=== PATIENT | female | born 1940 | race Caucasian/White ===

== ENCOUNTER 2017-05-24 00:46 | Inpatient (IN) | payer MEDICARE ==
[2017-05-24] VITALS (19 sets, daily range): BP systolic 88–116; BP diastolic 31–67
[~2017-05-24] VITALS: Ht 154.9 cm; Wt 52.4 kg
[2017-05-24] MEDS ORDERED: IPRATRPIUM/ALBUTEROL 0.5/2.5MG 3 ML NEBU. ONE ×2 (01:02→06:15)
[2017-05-24] MEDS ORDERED: IPRATRPIUM/ALBUTEROL 0.5/2.5MG 3 ML NEBU. NEB ONE (01:15)
--- NOTE | 2017-05-24 01:22 | PHYS DOC ---
Past History Past Medical History: A-Fib, Arthritis, COPD, GERD, Hypertension, Hypothyroid Smoking: Quit Greater Than 1 Year Alcohol Use: None Drug Use: None Adult General Chief Complaint Chief Complaint: CHEST PAIN HPI HPI Patient is a 76 year old female who presents with complaint of chest pain. Patient states her symptoms started approximately 1 hour prior to arrival. Patient states that the symptoms started while at rest. Patient states that she is having tightness and pressure throughout her chest. Patient denies nausea but does complain of associated shortness of breath. Patient denies any cough or fever. Patient has history of atrial fibrillation, hypertension, and COPD. Patient was given full strength aspirin by EMS prior to arrival. Patient rates her pain currently as 9 out of 10. The patient is currently under the care of Dr. Guerrero at her skilled nursing. Patient denies any history of myocardial infarction. Review of Systems Review of Systems Constitutional: Denies fever or chills [] Eyes: Denies change in visual acuity, redness, or eye pain [] HENT: Denies nasal congestion or sore throat [] Respiratory: Shortness of breath, denies cough [] Cardiovascular: Chest pain, denies edema [] GI: Denies abdominal pain, nausea, vomiting, bloody stools or diarrhea [] : Denies dysuria or hematuria [] Musculoskeletal: Denies back pain or joint pain [] Integument: Denies rash or skin lesions [] Neurologic: Denies headache, focal weakness or sensory changes [] Current Medications Current Medications Current Medications Medications (Trade) Dose Ordered Sig/Zoila Start Time Stop Time Status Last Admin Dose Admin Albuterol/ Ipratropium (Duoneb) 3 ml 1X ONCE 05/24/17 01:15 05/24/17 01:16 UNV 05/24/17 01:09 3 ML Physical Exam Physical Exam Constitutional: Alert, afebrile, appears in chronically poor health. [] HENT: Normocephalic, atraumatic, bilateral external ears normal, oropharynx moist, no oral exudates, nose normal. [] Eyes: PERRLA, EOMI, conjunctiva normal, no discharge. [] Neck: Normal range of motion, no tenderness, supple, no stridor. [] Cardiovascular: Irregular rhythm, tachycardia, no murmur [] Lungs & Thorax: Mild restriction of air movement bilaterally, no wheezes, no rales [] Abdomen: Bowel sounds normal, soft, no tenderness, no masses, no pulsatile masses. [] Skin: Warm, dry, no erythema, no rash. [] Back: No tenderness, no CVA tenderness. [] Extremities: No tenderness, no cyanosis, no clubbing, ROM intact, no edema. [] Neurologic: Alert and oriented X 3, normal motor function, normal sensory function, no focal deficits noted. [] Current Patient Data Vital Signs Vital Signs Date Time Temp Pulse Resp B/P (MAP) Pulse Ox O2 Delivery O2 Flow Rate FiO2 05/24/17 01:18 99 Nasal Cannula 2.0 Lab Results Laboratory Tests Test 05/24/17 01:30 White Blood Count 15.3 x10^3/uL Red Blood Count 3.85 x10^6/uL Hemoglobin 12.2 g/dL Hematocrit 37.4 % Mean Corpuscular Volume 97 fL Mean Corpuscular Hemoglobin 32 pg Mean Corpuscular Hemoglobin Concent 33 g/dL Red Cell Distribution Width 15.8 % Platelet Count 341 x10^3/uL Neutrophils (%) (Auto) 66 % Lymphocytes (%) (Auto) 17 % Monocytes (%) (Auto) 15 % Eosinophils (%) (Auto) 1 % Basophils (%) (Auto) 1 % Neutrophils # (Auto) 10.1 x10^3uL Lymphocytes # (Auto) 2.7 x10^3/uL Monocytes # (Auto) 2.2 x10^3/uL Eosinophils # (Auto) 0.2 x10^3/uL Basophils # (Auto) 0.1 x10^3/uL Segmented Neutrophils % 64 % Band Neutrophils % 1 % Lymphocytes % 20 % Monocytes % 12 % Eosinophils % 3 % Smudge Cells Present Toxic Granulation Slight Platelet Estimate Adequate Sodium Level 139 mmol/L Potassium Level 3.3 mmol/L Chloride Level 104 mmol/L Carbon Dioxide Level 25 mmol/L Anion Gap 10 Blood Urea Nitrogen 13 mg/dL Creatinine 1.1 mg/dL Estimated GFR (Cockcroft-Gault) 48.2 BUN/Creatinine Ratio 12 Glucose Level 100 mg/dL Calcium Level 9.2 mg/dL Magnesium Level 1.7 mg/dL Total Bilirubin 0.9 mg/dL Aspartate Amino Transf (AST/SGOT) 16 U/L Alanine Aminotransferase (ALT/SGPT) 9 U/L Alkaline Phosphatase 100 U/L Creatine Kinase 19 U/L Creatine Kinase MB (Mass) < 0.5 ng/mL Creatine Kinase MB Relative Index 2.6 % Troponin I Quantitative 0.054 ng/mL FE-Zot-R-Type Natriuretic Peptide 3051 pg/mL Total Protein 7.5 g/dL Albumin 2.9 g/dL Albumin/Globulin Ratio 0.6 Current Medications Medications (Trade) Dose Ordered Sig/Zoila Route PRN Reason Start Time Stop Time Status Last Admin Dose Admin Albuterol/ Ipratropium (Duoneb) 3 ml STK-MED ONCE .ROUTE 05/24/17 01:02 05/24/17 01:03 DC Albuterol/ Ipratropium (Duoneb) 3 ml 1X ONCE NEB 05/24/17 01:15 05/24/17 01:32 DC 05/24/17 01:09 Fentanyl Citrate (Fentanyl 2ml Vial) 50 mcg PRN Q15MIN PRN IV PAIN GREATER THAN 305/24/17 01:30 05/25/17 01:29 Ondansetron HCl (Zofran) 4 mg 1X ONCE IV 05/24/17 01:30 05/24/17 01:32 DC 05/24/17 01:45 Multi-Ingredient Mouthwash/Gargle (Gi Cocktail) 20 ml 1X ONCE PO 05/24/17 01:30 05/24/17 01:32 DC 05/24/17 01:45 EKG EKG Interpreted by me: Heart rate 99, atrial fibrillation, normal axis, no acute ST/ T-wave abnormalities present [] Radiology/Procedures Radiology/Procedures One view AP chest x-ray interpreted by me: No infiltrates, no effusions, normal cardiac silhouette [] Course & Med Decision Making Course & Med Decision Making Pertinent Labs and Imaging studies reviewed. (See chart for details) The patient was given DuoNeb breathing treatment with mild improvement tightness. Patient was also treated with GI cocktail and fentanyl. The patient states her symptoms have improved but are still present. Patient's initial lab work shows an elevated BNP level but no elevation in troponin levels. Due to patient's age and risk factors for coronary artery disease, the patient will need admission to the hospital to rule out possible myocardial infarction. Patient also is showing evidence of possible congestive heart failure which was not noted on her history. The patient will need further workup and patient will be started on one-time dose of 40 mg of IV Lasix. I spoke with Dr. Khan who accepted care patient in hospital. [] Dragon Disclaimer Dragon Disclaimer This chart was dictated in whole or in part using Voice Recognition software in a busy, high-work load, and often noisy Emergency Department environment. It may contain unintended and wholly unrecognized errors or omissions. Departure Departure: Impression: Primary Impression: Chest pain Additional Impressions: Congestive heart failure (CHF) Afib COPD (chronic obstructive pulmonary disease) Disposition: ADMITTED INPATIENT Admitting Physician: Sarai Khan Condition: STABLE Referrals: SHAYY GUERRERO MD (PCP) Problem Qualifiers Primary Impression: Chest pain Chest pain type: unspecified Qualified Codes: R07.9 - Chest pain, unspecified Additional Impressions: Congestive heart failure (CHF) Congestive heart failure type: unspecified congestive heart failure type Congestive heart failure chronicity: acute Qualified Codes: I50.9 - Heart failure, unspecified Afib Atrial fibrillation type: unspecified Qualified Codes: I48.91 - Unspecified atrial fibrillation COPD (chronic obstructive pulmonary disease) COPD type: unspecified COPD Qualified Codes: J44.9 - Chronic obstructive pulmonary disease, unspecified CARMEN DURAN MD May 24, 2017 01:22
[2017-05-24] MEDS ORDERED: LIDO:MAALOX 1:1 20 ML SINGLE DOSE PO ONE (01:30)
[2017-05-24] MEDS ORDERED: fentaNYL PF 100 MCG/2 ML VIAL IV PRN ×2 (01:30→02:45)
[2017-05-24] MEDS ORDERED: ONDANSETRON PF 4 MG/2 ML VIAL. IV ONE (01:30)
[2017-05-24 01:59] LABS: HEMATOCRIT 37.4 % (36.0-47.0); HEMOGLOBIN 12.2 g/dL (12.0-15.5); MEAN CORPUSCULAR HEMOGLOBIN 32 pg (25-35); MEAN CORPUSCULAR HGB CONC 33 g/dL (31-37); MEAN CORPUSCULAR VOLUME 97 fL (79-100); RED BLOOD COUNT 3.85 x10^6/uL (3.50-5.40); RED CELL DISTRIBUTION WIDTH 15.8 % (11.5-14.5); WHITE BLOOD COUNT 15.3 x10^3/uL (4.0-11.0)
[2017-05-24 02:00] LABS: BASO # 0.1 x10^3/uL (0.0-0.2); BASO % 1 % (0-3); EOS # 0.2 x10^3/uL (0.0-0.7); EOS % 1 % (0-3); LYMPH # 2.7 x10^3/uL (1.0-4.8); LYMPH % 17 % (24-48); MONO # 2.2 x10^3/uL (0.0-1.1); MONO % 15 % (0-9); NEUT # 10.1 x10^3uL (1.8-7.7); NEUT % 66 % (31-73); PLATELET COUNT 341 x10^3/uL (140-400)
[2017-05-24 02:17] LABS: % BANDS 1 % (0-9); % EOS 3 % (0-5); % LYMPHS 20 % (24-48); % MONOS 12 % (0-10); % SEGS 64 % (35-66)
[2017-05-24 02:18] LABS: PLT ESTIMATE ADEQUATE (ADEQUATE); SMUDGE CELLS PRESENT; TOXIC GRANULATION SLIGHT
[2017-05-24 02:21] LABS: ALBUMIN 2.9 g/dL (3.4-5.0); ALBUMIN/GLOBULIN RATIO 0.6 (1.0-1.7); ALK PHOS 100 U/L (46-116); ALT (SGPT) 9 U/L (14-59); ANION GAP 10 (6-14); AST (SGOT) 16 U/L (15-37); BLOOD UREA NITROGEN 13 mg/dL (7-20); BUN/CREATININE RATIO 12 (6-20); CALCIUM 9.2 mg/dL (8.5-10.1); CARBON DIOXIDE 25 mmol/L (21-32); CHLORIDE 104 mmol/L (98-107); CREATINE KINASE 19 U/L (26-192); CREATININE 1.1 mg/dL (0.6-1.0); GFR 48.2; GLUCOSE 100 mg/dL (70-99); MAGNESIUM 1.7 mg/dL (1.8-2.4); POTASSIUM 3.3 mmol/L (3.5-5.1); SODIUM 139 mmol/L (136-145); TOTAL BILIRUBIN 0.9 mg/dL (0.2-1.0); TOTAL PROTEIN 7.5 g/dL (6.4-8.2)
[2017-05-24] MEDS ORDERED: ONDANSETRON PF 4 MG/2 ML VIAL. IV PRN (02:45)
[2017-05-24] MEDS ORDERED: ACETAMINOPHEN 325 MG TABLET PO PRN (02:45)
[2017-05-24] MEDS ORDERED: FUROSEMIDE 40 MG/4 ML VIAL IVP ONE (03:00)
[2017-05-24] MEDS ORDERED: MORPHINE SULFATE 2 MG/ML DISP.SYRIN. IV PRN (04:15)
[2017-05-24] MEDS ORDERED: NITROGLYCERIN SUBLINGUAL 0.4 MG BOTTLE OF 25. SL PRN (04:15)
[2017-05-24] MEDS ORDERED: PANT20TA58 PO (05:14)
[2017-05-24] MEDS ORDERED: MAGNESIUM SULFATE 2GM 50 ML IV ONE (05:30)
[2017-05-24] MEDS ORDERED: POTASSIUM CHLORIDE 20 MEQ/15 ML ORAL LIQUID. PO ONE (05:45)
[2017-05-24] MEDS ORDERED: HYDR-971 PO (05:47)
[2017-05-24] MEDS ORDERED: MULT1TAB52 PO (05:47)
[2017-05-24] MEDS ORDERED: DIGO250T92 PO (05:54)
[2017-05-24] MEDS ORDERED: ONDA4TAB10 PO (05:54)
[2017-05-24] MEDS ORDERED: MIRT15TA PO (05:54)
[2017-05-24] MEDS ORDERED: MIDO5TAB PO (05:54)
[2017-05-24] MEDS ORDERED: MAG355OR12 TOP (05:54)
[2017-05-24] MEDS ORDERED: DIPH25CA58 PO (05:54)
[2017-05-24] MEDS ORDERED: LEVO175T5 PO (05:54)
[2017-05-24] MEDS ORDERED: CHOL10003 PO (05:54)
[2017-05-24] MEDS ORDERED: CYAN10005 PO (05:54)
[2017-05-24] MEDS: IPRATRPIUM/ALBUTEROL 0.5/2.5MG 3 ML NEBU. NEB SCH ×4 (06:21→20:35)
[2017-05-24] MEDS: IV NORMAL SALINE 1,000ML 1,000 ML IV SCH ×5 (06:45→22:01)
--- NOTE | 2017-05-24 06:47 | EKG ---
[address] [address] Test Date: 2017-05-24 Test Time: 00:56:09 Pat Name: NATANAEL MCKEON Department: Room: Gender: F Hris Analyst: Brice : 1940 Requested By: CARMEN DURAN Order Number: [id number] Reading MD: Measurements Intervals [place] Rate: 99 P: MA: QRS: 66 QRSD: 72 T: 0 QT: 396 QTc: 514 Interpretive Statements ATRIAL FIBRILLATION VENTRICULAR PREMATURE COMPLEX(ES) QRS(T) CONTOUR ABNORMALITY CONSISTENT WITH ANTEROSEPTAL INFARCT PROBABLY OLD T ABNORMALITY IN INFERIOR LEADS RI6.01 Unconfirmed report No previous ECG available for comparison
[2017-05-24 08:21] LABS: BILIRUBIN,URINE NEG (NEG); CLARITY,URINE CLOUDY; COLOR,URINE STRAW; GLUCOSE,URINE NEG (NEG); NITRITE,URINE NEG (NEG); UROBILINOGEN,URINE 0.2 mg/dL (0.2 mg/dL)
[2017-05-24 08:22] LABS: BACTERIA,URINE MANY /HPF (0-FEW); HYALINE CASTS, URINE OCC /HPF; SQUAMOUS EPITHELIAL CELL,UR FEW /LPF; WBC,URINE TNTC /HPF (0-4)
--- NOTE | 2017-05-24 08:50 | RAD ---
AP portable chest radiograph 05/24/2017 Clinical History: Chest pain and shortness of breath. An AP portable erect digital radiograph of the chest was obtained. No previous imaging studies are available for comparison. The cardiac silhouette is borderline enlarged. Atherosclerotic calcification of the thoracic aorta is seen. The thoracic aorta is minimally tortuous. No acute pulmonary infiltrate is seen. No pleural effusion or pneumothorax is noted. Degenerative changes are seen involving the thoracic spine and both shoulders. Impression: No acute abnormality is seen.
[2017-05-24] MEDS ORDERED: ENOXAPARIN 40 MG/0.4 ML DISP.SYRIN. SQ SCH (09:00)
--- NOTE | 2017-05-24 10:45 | PDOC2 ---
CONSULT Date of Admission DATE: 05/24/17 TIME: 10:42 Reason for Consult: chest pain Problem List Problems Medical Problems: (1) Afib Status: Acute (2) Chest pain Status: Acute (3) Congestive heart failure (CHF) Status: Acute (4) COPD (chronic obstructive pulmonary disease) Status: Acute History of Present Illness Ms Parsons is a 76 year old female currently residing in a [facility] rehab setting. She presented with complaints of chest pressure and shortness of breath that started at rest. She reports pain has continued but was improved minimally with breathing tx and is worsened with deep inspiration. She denies any prior cardiac history bur was found to be in atrial fibrillation and [facility] records indicate history of this. She denies any congestive symptoms, palpitations, lightheadedness, edema or syncope. She ambulates with a walker but reports increased dyspnea with exertion over the last 6 months, sometimes improved with breathing tx. She is a fairly poor historian and family reports that she can be very forgetful. History is reviewed from the chart. Past Medical History Paroxysmal atrial fibrillation, COPD Records indicate hypertension though she denies this. orthostatic hypotension Hypothyroidism Falls GERD osteoarthritis depression ileostomy urinary tract infections dementia Past Surgical History ileostomy, hernia repair operation Family History non contributory due to age Social History prior smoker, no illicit drugs, she denies ETOH though chart indicates history of alcoholism Current Medications Current Medications Albuterol/ Ipratropium (Duoneb) 3 ml STK-MED ONCE .ROUTE ; Start 05/24/17 at 01: 02; Stop 05/24/17 at 01:03; Status DC Albuterol/ Ipratropium (Duoneb) 3 ml 1X ONCE NEB Last administered on 01:09; Start 05/24/17 at 01:15; Stop 05/24/17 at 01:32; Status DC Fentanyl Citrate (Fentanyl 2ml Vial) 50 mcg PRN Q15MIN PRN IV PAIN GREATER THAN 3/10 Last administered on 05/24/17 03:32; Start 05/24/17 at 01:30; Stop at 08:50; Status DC Ondansetron HCl (Zofran) 4 mg 1X ONCE IV Last administered on 05/24/17 01:45 ; Start 05/24/17 at 01:30; Stop 05/24/17 at 01:32; Status DC Multi-Ingredient Mouthwash/Gargle (Gi Cocktail) 20 ml 1X ONCE PO Last administered on 05/24/17 01:45; Start 05/24/17 at 01:30; Stop 05/24/17 at 01:32 ; Status DC Ondansetron HCl (Zofran) 4 mg PRN Q4HRS PRN IV NAUSEA/VOMITING; Start 05/24/17 at 02:45; Stop 05/25/17 at 02:44 Fentanyl Citrate (Fentanyl 2ml Vial) 50 mcg PRN Q2HR PRN IV PAIN; Start at 02:45; Stop 05/25/17 at 02:44 Acetaminophen (Tylenol) 650 mg PRN Q4HRS PRN PO FEVER; Start 05/24/17 at 02:45 ; Stop 05/25/17 at 02:44 Albuterol/ Ipratropium (Duoneb) 3 ml RTQID NEB Last administered on 05/24/17 06:21; Start 05/24/17 at 08:00; Stop 05/25/17 at 07:59 Furosemide (Lasix) 40 mg 1X ONCE IVP Last administered on 05/24/17 03:14; Start 05/24/17 at 03:00; Stop 05/24/17 at 04:08; Status DC Nitroglycerin (Nitrostat) 0.4 mg PRN Q5MIN PRN SL CHEST PAIN Last administered on 05/24/17 04:32; Start 05/24/17 at 04:15 Morphine Sulfate (Morphine 2mg Syringe) 2 mg PRN Q10MIN PRN IV CHEST PAIN Last administered on 05/24/17 04:49; Start 05/24/17 at 04:15 Magnesium Sulfate 50 ml @ 25 mls/hr 1X ONCE IV Last administered on 05/24/17 05:23; Start 05/24/17 at 05:30; Stop 05/24/17 at 07:29; Status DC Potassium Chloride (KCl Oral Soln) 40 meq 1X ONCE PO Last administered on 05/24 05:40; Start 05/24/17 at 05:45; Stop 05/24/17 at 05:46; Status DC Sodium Chloride 1,000 ml @ 500 mls/hr Q2H IV Last administered on 05/24/17 08 :16; Start 05/24/17 at 06:30 Albuterol/ Ipratropium (Duoneb) 3 ml STK-MED ONCE .ROUTE Last administered on 07:00; Start 05/24/17 at 06:15; Stop 05/24/17 at 06:16; Status DC Ceftriaxone Sodium 1 gm/ Sodium Chloride 50 ml @ 100 mls/hr 1X ONCE IV Last administered on 05/24/17 07:31; Start 05/24/17 at 06:30; Stop 05/24/17 at 06:59 ; Status DC Enoxaparin Sodium (Lovenox) 50 mg Q12HR SQ ; Start 05/24/17 at 09:00 Active Scripts Active Reported Midodrine Hcl 5 Mg Tablet 5 Mg PO Q8HRS Remeron (Mirtazapine) 15 Mg Tablet 7.5 Mg PO DAILY Benadryl (Diphenhydramine Hcl) 25 Mg Capsule 25 Mg PO PRN Q4HRS PRN Vitamin D3 (Cholecalciferol (Vitamin D3)) 1,000 Unit Tablet 1,000 Unit PO DAILY Vitamin B-12 (Cyanocobalamin (Vitamin B-12)) 1,000 Mcg Tablet 500 Mcg PO DAILY Levothyroxine Sodium 175 Mcg Tablet 175 Mcg PO DAILY06 Maalox Maximum Strength Susp (Mag Hydrox/Al Hydrox/Simeth) 355 Ml Oral.susp 355 Ml TOP PRN PRN Digoxin 250 Mcg Tablet 250 Mcg PO DAILY Zofran Odt (Ondansetron) 4 Mg Tab.rapdis 4 Mg PO PRN Q6HRS PRN [place] 5-325 Tablet (Hydrocodone Bit/Acetaminophen) 1 Each Tablet 1 Tab PO PRN Q4HRS PRN Multivitamins (Multivitamin) 1 Each Tablet 1 Tab PO Protonix (Pantoprazole Sodium) 20 Mg Tablet.dr 20 Mg PO DAILY Allergies: Coded Allergies: No Known Allergies (Verified Allergy, Unknown, 05/24/17) Review of System as per HPI and otherwise negative General: Alert, Oriented X3, Cooperative, No acute distress HEENT: Atraumatic, EOMI, Mucous membr. moist/pink Lungs: Other (decreased with few scattered crackles and occasional wheeze) Heart: Other (irregular rate and rhythm, no gallops, clicks or rubs) Abdomen: Normal bowel sounds, Soft, No tenderness Extremities: No edema, Normal pulses Neuro: Normal speech Psych/Mental Status: Mental status NL, Mood NL VITALS Vital Signs Date Time Temp Pulse Resp B/P (MAP) Pulse Ox O2 Delivery O2 Flow Rate FiO2 05/24/17 08:50 Room Air 05/24/17 08:31 99.0 20 05/24/17 06:30 94 110/45 (66) 98 2.0 Labs Laboratory Tests Test 05/24/17 01:30 05/24/17 05:30 05/24/17 06:35 05/24/17 06:45 White Blood Count 15.3 x10^3/uL (4.0-11.0) Red Blood Count 3.85 x10^6/uL (3.50-5.40) Hemoglobin 12.2 g/dL (12.0-15.5) Hematocrit 37.4 % (36.0-47.0) Mean Corpuscular Volume 97 fL (79-100) Mean Corpuscular Hemoglobin 32 pg (25-35) Mean Corpuscular Hemoglobin Concent 33 g/dL (31-37) Red Cell Distribution Width 15.8 % (11.5-14.5) Platelet Count 341 x10^3/uL (140-400) Neutrophils (%) (Auto) 66 % (31-73) Lymphocytes (%) (Auto) 17 % (24-48) Monocytes (%) (Auto) 15 % (0-9) Eosinophils (%) (Auto) 1 % (0-3) Basophils (%) (Auto) 1 % (0-3) Neutrophils # (Auto) 10.1 x10^3uL (1.8-7.7) Lymphocytes # (Auto) 2.7 x10^3/uL (1.0-4.8) Monocytes # (Auto) 2.2 x10^3/uL (0.0-1.1) Eosinophils # (Auto) 0.2 x10^3/uL (0.0-0.7) Basophils # (Auto) 0.1 x10^3/uL (0.0-0.2) Segmented Neutrophils % 64 % (35-66) Band Neutrophils % 1 % (0-9) Lymphocytes % 20 % (24-48) Monocytes % 12 % (0-10) Eosinophils % 3 % (0-5) Smudge Cells Present Toxic Granulation Slight Platelet Estimate Adequate (ADEQUATE) Sodium Level 139 mmol/L (136-145) Potassium Level 3.3 mmol/L (3.5-5.1) Chloride Level 104 mmol/L (98-107) Carbon Dioxide Level 25 mmol/L (21-32) Anion Gap 10 (6-14) Blood Urea Nitrogen 13 mg/dL (7-20) Creatinine 1.1 mg/dL (0.6-1.0) Estimated GFR (Cockcroft-Gault) 48.2 BUN/Creatinine Ratio 12 (6-20) Glucose Level 100 mg/dL (70-99) Calcium Level 9.2 mg/dL (8.5-10.1) Magnesium Level 1.7 mg/dL (1.8-2.4) Total Bilirubin 0.9 mg/dL (0.2-1.0) Aspartate Amino Transf (AST/SGOT) 16 U/L (15-37) Alanine Aminotransferase (ALT/SGPT) 9 U/L (14-59) Alkaline Phosphatase 100 U/L (46-116) Creatine Kinase 19 U/L (26-192) Creatine Kinase MB (Mass) < 0.5 ng/mL (0.0-3.6) Creatine Kinase MB Relative Index 2.6 % (0-4) Troponin I Quantitative 0.054 ng/mL (0-0.055) 0.044 ng/mL (0-0.055) ME-Saw-W-Type Natriuretic Peptide 3051 pg/mL (0-449) Total Protein 7.5 g/dL (6.4-8.2) Albumin 2.9 g/dL (3.4-5.0) Albumin/Globulin Ratio 0.6 (1.0-1.7) Lactic Acid Level 2.9 mmol/L (0.4-2.0) D-Dimer (Nori) 1.36 mg/L (0.00-0.50) Urine Collection Type U cath Urine Color Straw Urine Clarity Cloudy Urine pH 5.0 Urine Specific [place] <=1.005 Urine Protein Neg (NEG-TRACE) Urine Glucose (UA) Neg mg/dL (NEG) Urine Ketones (Stick) Neg mg/dL (NEG) Urine Blood Large (NEG) Urine Nitrite Neg (NEG) Urine Bilirubin Neg (NEG) Urine Urobilinogen Dipstick 0.2 mg/dL (0.2 mg/dL) Urine Leukocyte Esterase Large (NEG) Urine RBC 6-10 /HPF (0-2) Urine WBC Tntc /HPF (0-4) Urine Squamous Epithelial Cells Few /LPF Urine Transitional Epithelial Cells Mod /LPF Urine Bacteria Many /HPF (0-FEW) Urine Hyaline Casts Occ /HPF Urine Mucus Slight /LPF Test 05/24/17 09:04 Lactic Acid Level 4.2 mmol/L (0.4-2.0) Images EKG - atrial fibrillation with CVR, ASMI age undetermined, non specific inferolateral st/t abn. CXR - no acute abn Assessment/Plan 1. Chest pain, atypical - Troponins borderline x 2 2. atrial fibrillation - rate controlled 3. hypertension with history of orthostatic hypotension- pressures borderline low at this time 4. UTI/Sepsis - per PCP 5. COPD/elevated d dimer - VQ pending, mgmt per PCP Will obtain echocardiogram, monitor Jayde and continue with supportive care at this time. No beta christine at this time due to COPD and hypotension. [id number] score > 2 but with history of falls would recommend aspirin alone at this time. Management of UTI/Sepsis per PCP and could re-evaluate for any further testing when stable. 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
--- NOTE | 2017-05-24 12:47 | CARD ---
APPROVED REPORT EXAM: Two-dimensional and M-mode echocardiogram with Doppler and color Doppler. Other Information Quality : Average Rhythm : Atrial Fibrillation INDICATION Chest Pain elevated troponin level 2D DIMENSIONS Left Atrium(2D)3.9 (1.6-4.0cm)IVSd1.1 (0.7-1.1cm) Aortic Root(2D)2.7 (2.0-3.7cm)LVDd4.8 (3.9-5.9cm) LVOT Diameter2.0 (1.8-2.4cm)PWd1.0 (0.7-1.1cm) LVDs3.4 (2.5-4.0cm)FS (%) 30.1 % SV61.8 mlLVEF(%)57.2 (>50%) Aortic Valve AoV Peak Bg.194.9cm/sAoV VTI25.1cm AO Peak GR.15.2mmHgLVOT Peak Bg.113.4cm/s LVOT VTI 20.91cmAO Mean GR.7mmHg NARDA (VTI)2.28rr1CJ P 1/2 [id number] Mitral Valve MV [id number] (PHT)4.23cm2 Tricuspid Valve TR P. [id number]/sRAP [id number] TR Peak Gr.26awPqKSBF75svLm LEFT VENTRICLE The left ventricle is normal size. There is normal left ventricular wall thickness. Left ventricle sy stolic function is normal. The Ejection Fraction is 55-60%. There is grossly normal LV segmental wall motion. Tissue Doppler imaging reveals moderate left ventricular diastolic dysfunction. RIGHT VENTRICLE The right ventricle is normal size. The right ventricular systolic function is normal. ATRIA The left atrium size is normal. The right atrium size is normal. The interatrial septum is intact wit h no evidence for an atrial septal defect or patent foramen ovale as noted on 2-D or Doppler imaging. AORTIC VALVE The aortic valve is moderately sclerotic. The aortic valve is trileaflet. Doppler and Color Flow reve aled trace to mild aortic regurgitation. There is no significant aortic valvular stenosis. MITRAL VALVE Mitral annular calcification is moderate. There is no mitral valve stenosis. Doppler and Color Flow r evealed trace mitral regurgitation. TRICUSPID VALVE The tricuspid valve is normal in structure and function. There is no tricuspid valve stenosis. PULMONIC VALVE The pulmonic valve is not well visualized. Doppler and Color Flow revealed no pulmonic valvular regur gitation. There is no pulmonic valvular stenosis. GREAT VESSELS The aortic root is normal in size. Pulmonary veins not recorded. The IVC is normal in size and collap ses >50% with inspiration. PERICARDIAL EFFUSION There is no evidence of significant pericardial effusion. Critical Notification Critical Value: No <Conclusion> Left ventricle systolic function is normal. The Ejection Fraction is 55-60%. There is grossly normal LV segmental wall motion. Tissue Doppler imaging reveals moderate left ventricular diastolic dysfunction.
--- NOTE | 2017-05-24 13:15 | RAD ---
Indication chest pain elevated d-dimer. Ventilation perfusion lung scan was performed and is correlated with a single view of the chest obtained approximately 12 hours earlier. In order to evaluate ventilation 18 mCi of xenon was administered. 5.5 mCi of technetium labeled MAA was administered to evaluate perfusion. No prior ventilation/perfusion lung scan is available. There is slight air trapping in the lungs. On the perfusion study there are scattered areas of slightly diminished perfusion which are probably chronic and related to the air trapping referenced. A dominant perfusion anomaly is not seen. The study is considered overall intermediate to low probability for pulmonary embolus. If the clinical index of suspicion for pulmonary embolus is high, ideally a CT examination with contrast would be performed. IMPRESSION: Intermediate to low probability VQ scan for pulmonary embolus. See above discussion
[2017-05-24] MEDS ORDERED: ONDANSETRON ODT 4 MG TAB.RAPDIS PO PRN (15:30)
[2017-05-24] MEDS ORDERED: IV NORMAL SALINE 500ML 500 ML IV ONE (16:00)
--- NOTE | 2017-05-24 17:39 | HP ---
ADMIT DATE: 05/24/2017 REASON FOR ADMISSION: Chest pain, urinary tract infection. HISTORY OF PRESENT ILLNESS: This is a 76-year-old female who resides over at [facility] who was complaining of some pain in the middle of his chest. This would not go away. It started about one hour prior to coming to the Emergency Room this morning. Does have a little bit of shortness of breath. Denies diaphoresis or radiation. PAST MEDICAL HISTORY: She has an ileostomy, COPD, previous history of cellulitis of abdominal wall, hypothyroidism, falls, depression, anemia, paroxysmal atrial fibrillation, osteoarthritis, hypertension, reflux, hypoxemia, nicotine dependence, no history of PE or DVT. Low blood pressure on midodrine and she has a personal history of MRSA. . PAST SURGICAL HISTORY: Colostomy 3-4 years ago. MEDICATIONS: Reviewed and are available on the MAR. ALLERGIES: No known allergies. SOCIAL HISTORY: She is currently at [facility]. She had been undergoing rehabilitation. She has family. She quit smoking 5 years ago. Previous to that smoked 1-2 packs per day since age 17. FAMILY HISTORY: Mother had multiple sclerosis. Father of a heart attack at 73 years old. REVIEW OF SYSTEMS: Negative for dysuria or sore throat, fever, positive for weight loss. The patient states she used to weigh 265 pounds. No sore throat, mild shortness of breath. PHYSICAL EXAMINATION: GENERAL: Temperature is 98.4, pulse 92, blood pressure 107/55, pulse ox 95% on room air, the patient's hearing is normal. HEENT: Her eyes are clear. Nose patent. Throat clear. Posterior pharynx is clear. NECK: Supple, without adenopathy. LUNGS: With some coarse breath sounds. CARDIOVASCULAR: Irregular rhythm and rate. ABDOMEN: Soft, nontender. EXTREMITIES: Without edema. LABORATORY DATA: Urine is positive for UTI. Potassium 3.3. Lactic acid 2.9, increased to 4.2. BNP is 3051, equivocal troponins, magnesium 1.7. D-dimer is 1.36. VQ scan was intermediate to low probability, probably low. ASSESSMENT: 1. Sepsis with urinary tract infection. 2. Hypotension. This is chronic. 3. Hypoxemia and needs a little bit of oxygen. 4. Chronic obstructive pulmonary disease. 5. Elevated BNP. The patient looks a little dry. 6. Hypomagnesemia. 7. Hypokalemia. PLAN: Gentle fluid resuscitation, started on ceftriaxone, be on DVT prophylaxis, oxygen, breathing treatments and Cardiology on board. ROSHAN JENKINS DO DR: CHANDLER/terrence JOB#: [id number] / [id number]
[2017-05-24] MEDS: MIDODRINE 5 MG TABLET PO SCH (22:01)
[2017-05-24] MEDS: MIRTAZAPINE 7.5 MG TABLET. PO SCH (23:40)
[2017-05-24] MEDS: HYDROcodone/APAP 5/325MG 1 TAB TABLET PO PRN (23:40)
[2017-05-25] VITALS (23 sets, daily range): BP systolic 11–125; BP diastolic 41–60
--- NOTE | 2017-05-25 01:54 | ACF ---
Admission Criteria Forms HEART FAILURE: COMMON COMPLICATIONS (Place 'X' for any and all applicable criteria): Ongoing inpatient care may be indicated for heart failure with 1 or more of the following (1)(2)(3)(4)(5)(6)(7)(8): [ ]I. New-onset heart failure [ ]II. Acute cardiac ischemia causing or associated with failure [ ]III. Ongoing need for care for primary condition requiring frequent therapy adjustments because of changes in cardiac function (eg, drug dosage changes for drugs that are renally metabolized) [x]IV. Complications of heart failure, including 1 or more of the following: [x]a) Hemodynamic instability [ ]b) Pericardial effusion [ ]c) Symptomatic pleural effusion [ ]d) Hypoxemia [x]e) Tachypnea [x]f) Dyspnea [ ]g) Syncope [ ]h) Altered mental status [ ]i) Acute renal insufficiency that is severe (reduction of more than 50% in estimated glomerular filtration rate from baseline) or progressive reduction of more than 25% in estimated glomerular filtration rate from baseline, with creatinine continuing to rise) [ ]j) Debilitating anasarca (eg tissue breakdown with infection, inability to void due to edema) (E) [ ]k) Clinically significant metabolic abnormalities due to heart failure (eg, new-onset metabolic acidosis) Extended stay may be needed until ALL of the following are present (1)(3)(18)(41 )(55) [ ]a) Hemodynamic stability [ ]b) Stable and effective diuretic regimen established (or patient on stable dialysis regimen if in chronic renal failure) [ ]c) Volume status acceptable on oral medication [ ]d) Breathing comfortably at rest [ ]e) Saturation of arterial oxygen greater than 90% or at acceptable baseline [ ]f) Pulmonary edema absent or improved [ ]g) Peripheral or sacral edema absent or improved [ ]h) Renal function stable and manageable at a lower level of care [ ]i) Complications (eg, pleural effusion) resolved or manageable at a lower level of care [ ]g) Patient or caregiver has received written discharge instructions or educational material addressing activity level, diet, discharge medications, follow-up appointment, weight monitoring, and what to do if symptoms worsen.(25)(26) The original [facility] [employer] content created by [facility] has been revised. The portions of the content which have been revised are identified through the use of italic text, and [facility] has neither reviewed nor approved the modified material.All other unmodified content is copyright [facility]. Please see references footnoted in the original [facility] edition 2015 Admission Criteria Met?: Yes KALANI BARCLAY May 25, 2017 01:54
[2017-05-25] MEDS: IV NORMAL SALINE 1,000ML 1,000 ML IV SCH (04:27)
[2017-05-25] MEDS: IPRATRPIUM/ALBUTEROL 0.5/2.5MG 3 ML NEBU. NEB SCH ×2 (05:40→20:14)
[2017-05-25] MEDS: LEVOTHYROXINE 175 MCG TABLET PO SCH (05:57)
[2017-05-25] MEDS: HYDROcodone/APAP 5/325MG 1 TAB TABLET PO PRN ×4 (05:59→20:34)
[2017-05-25] MEDS: MIDODRINE 5 MG TABLET PO SCH ×3 (05:59→21:35)
[2017-05-25 06:40] LABS: BASO # 0.1 x10^3/uL (0.0-0.2); BASO % 1 % (0-3); EOS # 0.1 x10^3/uL (0.0-0.7); EOS % 1 % (0-3); HEMATOCRIT 29.6 % (36.0-47.0); HEMOGLOBIN 9.8 g/dL (12.0-15.5); LYMPH # 1.6 x10^3/uL (1.0-4.8); LYMPH % 13 % (24-48); MEAN CORPUSCULAR HEMOGLOBIN 32 pg (25-35); MEAN CORPUSCULAR HGB CONC 33 g/dL (31-37); MEAN CORPUSCULAR VOLUME 97 fL (79-100); MONO % 17 % (0-9); NEUT # 8.1 x10^3uL (1.8-7.7); NEUT % 69 % (31-73); PLATELET COUNT 251 x10^3/uL (140-400); RED BLOOD COUNT 3.04 x10^6/uL (3.50-5.40); RED CELL DISTRIBUTION WIDTH 15.9 % (11.5-14.5); WHITE BLOOD COUNT 11.9 x10^3/uL (4.0-11.0)
[2017-05-25 06:43] LABS: CALCIUM 7.9 mg/dL (8.5-10.1); CREATININE 0.8 mg/dL (0.6-1.0); GFR 69.6; POTASSIUM 3.1 mmol/L (3.5-5.1)
[2017-05-25] MEDS: CHOLECALCIFEROL (VITAMIN D3) 1,000 UNIT TABLET PO SCH (07:55)
[2017-05-25] MEDS: PANTOPRAZOLE 40 MG TABLET. PO SCH (07:55)
[2017-05-25] MEDS: ASPIRIN ENTERIC COATED 81 MG TABLET.DR. PO SCH (07:55)
[2017-05-25] MEDS: DIGOXIN 250 MCG TABLET PO SCH (07:55)
[2017-05-25] MEDS: CYANOCOBALAMIN (VITAMIN B-12) 1,000 MCG TABLET. PO SCH (07:55)
[2017-05-25] MEDS ORDERED: ENOXAPARIN 30 MG/0.3 ML DISP.SYRIN. SQ SCH (09:00)
[2017-05-25] MEDS: POTASSIUM CHLORIDE 20 MEQ TABLET.ER. PO SCH (11:10)
--- NOTE | 2017-05-25 15:08 | PN ---
DATE: PROBLEMS: 1. Sepsis with urinary tract infection. 2. Hypotension, improved. 3. Hypoxemia. 4. Chronic obstructive pulmonary disease. 5. Urinary tract infection. 6. Elevated BNP. 7. Hypomagnesemia. 8. Hypokalemia. 9. Elevated D-dimer with low to intermediate probability. 10. Deep venous thrombosis prophylaxis. 11. Diastolic dysfunction. 12. Atrial fibrillation. 13. Atypical chest pain. SUBJECTIVE: The patient is doing a little bit better today. Blood pressure coming up, was able to rest last night. Denies shortness of breath, chest pain. Patient is satting well and feels better. OBJECTIVE: VITAL SIGNS: Blood pressure 119/51, pulse 80, temperature is 97.6, pulse ox 99% on 2 liters. She had been little hypoxic previous. Afebrile. GENERAL: Color is improved. HEENT: Her tongue is still slightly dry. NECK: Supple. LUNGS: Clear. CARDIOVASCULAR: Irregular rhythm and rate. ABDOMEN: Soft, nontender. EXTREMITIES: Without edema. PLAN: . Continue IV antibiotics. We will be treating diastolic dysfunction with medication. She is getting breathing treatments and DVT prophylaxis. ROSHAN JENKINS DO DR: CHANDLER/terrence JOB#: [id number] / [id number]
[2017-05-25] MEDS: MIRTAZAPINE 7.5 MG TABLET. PO SCH (20:34)
[2017-05-25] MEDS: diphenhydrAMINE HCL 25 MG CAPSULE PO PRN (22:19)
[2017-05-26] VITALS (22 sets, daily range): BP systolic 92–131; BP diastolic 33–69
[2017-05-26] MEDS: HYDROcodone/APAP 5/325MG 1 TAB TABLET PO PRN ×4 (00:38→23:25)
[2017-05-26] MEDS: IPRATRPIUM/ALBUTEROL 0.5/2.5MG 3 ML NEBU. NEB SCH ×4 (04:17→21:11)
[2017-05-26] MEDS: LEVOTHYROXINE 175 MCG TABLET PO SCH (05:22)
[2017-05-26] MEDS: MIDODRINE 5 MG TABLET PO SCH ×3 (05:23→17:53)
[2017-05-26 06:52] LABS: BASO % 0 % (0-3); EOS # 0.3 x10^3/uL (0.0-0.7); EOS % 2 % (0-3); HEMATOCRIT 31.9 % (36.0-47.0); HEMOGLOBIN 10.2 g/dL (12.0-15.5); LYMPH # 2.2 x10^3/uL (1.0-4.8); LYMPH % 19 % (24-48); MEAN CORPUSCULAR HEMOGLOBIN 32 pg (25-35); MEAN CORPUSCULAR HGB CONC 32 g/dL (31-37); MEAN CORPUSCULAR VOLUME 100 fL (79-100); MONO # 1.4 x10^3/uL (0.0-1.1); MONO % 12 % (0-9); NEUT # 7.8 x10^3uL (1.8-7.7); NEUT % 67 % (31-73); PLATELET COUNT 286 x10^3/uL (140-400); RED BLOOD COUNT 3.18 x10^6/uL (3.50-5.40); RED CELL DISTRIBUTION WIDTH 16.3 % (11.5-14.5); WHITE BLOOD COUNT 11.7 x10^3/uL (4.0-11.0)
[2017-05-26 07:00] LABS: CALCIUM 8.8 mg/dL (8.5-10.1); CREATININE 0.9 mg/dL (0.6-1.0); GFR 60.7; MAGNESIUM 2.1 mg/dL (1.8-2.4); POTASSIUM 3.8 mmol/L (3.5-5.1)
--- NOTE | 2017-05-26 07:34 | PDOC ---
PROGRESS NOTES Diagnosis Problem Problems Medical Problems: (1) Afib Status: Acute (2) Chest pain Status: Acute (3) Congestive heart failure (CHF) Status: Acute (4) COPD (chronic obstructive pulmonary disease) Status: Acute Assessment 1. Sepsis with urinary tract infection: Sepsis is resolved. Pt growing >100K GNR's. Continue IV abx. Change to oral when sensitivities known. 2. Hypotension. This is chronic, currently stable. 3. Hypoxemia: Due to COPD. Pt is normally on O2 by CPAP at night, but not during the day. Pt's V/Q scan was possibly intermediate. Pt is on Lovenox. I would like to check a CT angio today to r/o PE, as pt was not on anticoagulation for afib prior to admission. She had VQ initially due to renal function, but that has improved. 4. Chronic obstructive pulmonary disease: See above. Continue PRN O2 and continue home meds. Pt is no longer smoking. 6. Hypomagnesemia: Resolved. 7. Hypokalemia: Resolved. 8. Atrial fibrillation: Stable, continue anticoagulation for stroke prophylaxis. Continue Lovenox. Rate controlled. 9. Moderate PEM: Nutritional supplements. Problems: Plan of Care: see other orders Subjective Pt feeling well, "much better." Denies chest pain, SOA, cough, fever, diarrhea , n/v. Empties bowels in colostomy bag. No rash or itching. No dizziness. No leg swelling. Pt states she came from "[facility] Per records , pt came from [place]. Objective Vital Signs Date Time Temp Pulse Resp B/P (MAP) Pulse Ox O2 Delivery O2 Flow Rate FiO2 05/26/17 05:44 98.6 78 20 100/52 (68) 100 Nasal Cannula 1.0 Intake and Output 05/26/17 07:00 Intake Total 1670 ml Output Total 600 ml Balance 1070 ml Intake Oral 1670 ml Output Stool Total 600 ml # Voids 6 # Bowel Movements 175 Abdomen: Normal bowel sounds, Soft, No tenderness Heart: Other (Irregularly irregular, no m/r/g) Extremities: No edema, Normal pulses General: Alert, Cooperative, No acute distress HEENT: Atraumatic, PERRLA, EOMI, Mucous membr. moist/pink Lungs: Clear to auscultation, Normal air movement Neck: No JVD, No LAD Neuro: Normal speech, Strength at 5/5 X4 ext, Normal tone, Cranial nerves 3-12 NL Psych/Mental Status: Mental status NL, Mood NL Skin: No rashes Review of Relevant I have reviewed the following items hosea (where applicable) has been applied. Labs Laboratory Tests Test 05/24/17 09:04 05/24/17 13:35 05/25/17 05:40 05/26/17 05:40 Lactic Acid Level 4.2 mmol/L (0.4-2.0) Troponin I Quantitative 0.041 ng/mL (0-0.055) White Blood Count 11.9 x10^3/uL (4.0-11.0) 11.7 x10^3/uL (4.0-11.0) Red Blood Count 3.04 x10^6/uL (3.50-5.40) 3.18 x10^6/uL (3.50-5.40) Hemoglobin 9.8 g/dL (12.0-15.5) 10.2 g/dL (12.0-15.5) Hematocrit 29.6 % (36.0-47.0) 31.9 % (36.0-47.0) Mean Corpuscular Volume 97 fL (79-100) 100 fL (79-100) Mean Corpuscular Hemoglobin 32 pg (25-35) 32 pg (25-35) Mean Corpuscular Hemoglobin Concent 33 g/dL (31-37) 32 g/dL (31-37) Red Cell Distribution Width 15.9 % (11.5-14.5) 16.3 % (11.5-14.5) Platelet Count 251 x10^3/uL (140-400) 286 x10^3/uL (140-400) Neutrophils (%) (Auto) 69 % (31-73) 67 % (31-73) Lymphocytes (%) (Auto) 13 % (24-48) 19 % (24-48) Monocytes (%) (Auto) 17 % (0-9) 12 % (0-9) Eosinophils (%) (Auto) 1 % (0-3) 2 % (0-3) Basophils (%) (Auto) 1 % (0-3) 0 % (0-3) Neutrophils # (Auto) 8.1 x10^3uL (1.8-7.7) 7.8 x10^3uL (1.8-7.7) Lymphocytes # (Auto) 1.6 x10^3/uL (1.0-4.8) 2.2 x10^3/uL (1.0-4.8) Monocytes # (Auto) 2.0 x10^3/uL (0.0-1.1) 1.4 x10^3/uL (0.0-1.1) Eosinophils # (Auto) 0.1 x10^3/uL (0.0-0.7) 0.3 x10^3/uL (0.0-0.7) Basophils # (Auto) 0.1 x10^3/uL (0.0-0.2) 0.0 x10^3/uL (0.0-0.2) Sodium Level 141 mmol/L (136-145) 140 mmol/L (136-145) Potassium Level 3.1 mmol/L (3.5-5.1) 3.8 mmol/L (3.5-5.1) Chloride Level 111 mmol/L (98-107) 110 mmol/L (98-107) Carbon Dioxide Level 24 mmol/L (21-32) 25 mmol/L (21-32) Anion Gap 6 (6-14) 5 (6-14) Blood Urea Nitrogen 12 mg/dL (7-20) 10 mg/dL (7-20) Creatinine 0.8 mg/dL (0.6-1.0) 0.9 mg/dL (0.6-1.0) Estimated GFR (Cockcroft-Gault) 69.6 60.7 Glucose Level 97 mg/dL (70-99) 87 mg/dL (70-99) Calcium Level 7.9 mg/dL (8.5-10.1) 8.8 mg/dL (8.5-10.1) Magnesium Level 1.8 mg/dL (1.8-2.4) 2.1 mg/dL (1.8-2.4) Microbiology 05/24/17 Blood Culture - Preliminary, Resulted NO GROWTH AFTER 2 DAYS 05/24/17 Urine Culture - Preliminary, Resulted 05/24/17 Urine Culture Result 1 (KARLOS) - Preliminary, Resulted Medications Current Medications Albuterol/ Ipratropium (Duoneb) 3 ml STK-MED ONCE .ROUTE ; Start 05/24/17 at 01: 02; Stop 05/24/17 at 01:03; Status DC Albuterol/ Ipratropium (Duoneb) 3 ml 1X ONCE NEB Last administered on 01:09; Start 05/24/17 at 01:15; Stop 05/24/17 at 01:32; Status DC Fentanyl Citrate (Fentanyl 2ml Vial) 50 mcg PRN Q15MIN PRN IV PAIN GREATER THAN 3/10 Last administered on 05/24/17 03:32; Start 05/24/17 at 01:30; Stop at 08:50; Status DC Ondansetron HCl (Zofran) 4 mg 1X ONCE IV Last administered on 05/24/17 01:45 ; Start 05/24/17 at 01:30; Stop 05/24/17 at 01:32; Status DC Multi-Ingredient Mouthwash/Gargle (Gi Cocktail) 20 ml 1X ONCE PO Last administered on 05/24/17 01:45; Start 05/24/17 at 01:30; Stop 05/24/17 at 01:32 ; Status DC Ondansetron HCl (Zofran) 4 mg PRN Q4HRS PRN IV NAUSEA/VOMITING; Start 05/24/17 at 02:45; Stop 05/25/17 at 02:44; Status DC Fentanyl Citrate (Fentanyl 2ml Vial) 50 mcg PRN Q2HR PRN IV PAIN; Start at 02:45; Stop 05/25/17 at 02:44; Status DC Acetaminophen (Tylenol) 650 mg PRN Q4HRS PRN PO FEVER Last administered on 05/24 22:01; Start 05/24/17 at 02:45; Stop 05/25/17 at 02:44; Status DC Albuterol/ Ipratropium (Duoneb) 3 ml RTQID NEB Last administered on 05/25/17 05:40; Start 05/24/17 at 08:00; Stop 05/25/17 at 08:00; Status DC Furosemide (Lasix) 40 mg 1X ONCE IVP Last administered on 05/24/17 03:14; Start 05/24/17 at 03:00; Stop 05/24/17 at 04:08; Status DC Nitroglycerin (Nitrostat) 0.4 mg PRN Q5MIN PRN SL CHEST PAIN Last administered on 05/24/17 04:32; Start 05/24/17 at 04:15 Morphine Sulfate (Morphine 2mg Syringe) 2 mg PRN Q10MIN PRN IV CHEST PAIN Last administered on 05/24/17 04:49; Start 05/24/17 at 04:15 Magnesium Sulfate 50 ml @ 25 mls/hr 1X ONCE IV Last administered on 05/24/17 05:23; Start 05/24/17 at 05:30; Stop 05/24/17 at 07:29; Status DC Potassium Chloride (KCl Oral Soln) 40 meq 1X ONCE PO Last administered on 05/24 05:40; Start 05/24/17 at 05:45; Stop 05/24/17 at 05:46; Status DC Sodium Chloride 1,000 ml @ 500 mls/hr Q2H IV Last administered on 05/24/17 08 :16; Start 05/24/17 at 06:30; Stop 05/24/17 at 11:31; Status DC Albuterol/ Ipratropium (Duoneb) 3 ml STK-MED ONCE .ROUTE Last administered on 07:00; Start 05/24/17 at 06:15; Stop 05/24/17 at 06:16; Status DC Ceftriaxone Sodium 1 gm/ Sodium Chloride 50 ml @ 100 mls/hr 1X ONCE IV Last administered on 05/24/17 07:31; Start 05/24/17 at 06:30; Stop 05/24/17 at 06:59 ; Status DC Enoxaparin Sodium (Lovenox) 50 mg Q12HR SQ Last administered on 05/24/17 14:47 ; Start 05/24/17 at 09:00; Stop 05/24/17 at 15:42; Status DC Aspirin (Aspirin Enteric Coated) 81 mg DAILYWBKFT PO Last administered on 07:55; Start 05/25/17 at 08:00 Enoxaparin Sodium (Lovenox) 30 mg DAILY SQ Last administered on 05/25/17 07:55 ; Start 05/25/17 at 09:00; Stop 05/25/17 at 09:40; Status DC Ceftriaxone Sodium 1 gm/ Sodium Chloride 50 ml @ 100 mls/hr Q24H IV Last administered on 05/26/17 05:22; Start 05/25/17 at 06:00 Vitamin D (Vitamin D3) 1,000 unit DAILY PO Last administered on 05/25/17 07:55 ; Start 05/25/17 at 09:00 Cyanocobalamin (Vitamin B-12) 500 mcg DAILY PO Last administered on 05/25/17 07:55; Start 05/25/17 at 09:00 Digoxin (Lanoxin) 250 mcg DAILY PO Last administered on 05/25/17 07:55; Start 05/25/17 at 09:00 Levothyroxine Sodium (Synthroid) 175 mcg DAILY06 PO Last administered on 05:22; Start 05/25/17 at 06:00 Midodrine (Proamatine) 5 mg Q8HRS PO Last administered on 05/26/17 05:23; Start 05/24/17 at 22:00 Mirtazapine (Remeron) 7.5 mg HS PO Last administered on 05/25/17 20:34; Start 05/24/17 at 22:25 Ondansetron HCl (Zofran Odt) 4 mg PRN Q6HRS PRN PO NAUSEA/VOMITING; Start 05/24 at 15:30 Pantoprazole Sodium (Protonix) 40 mg DAILYAC PO Last administered on 05/25/17 07:55; Start 05/25/17 at 07:30 Sodium Chloride 500 ml @ 0 mls/hr 1X ONCE IV Last administered on 05/24/17 15 :57; Start 05/24/17 at 16:00; Stop 05/24/17 at 16:01; Status DC Sodium Chloride 1,000 ml @ 100 mls/hr Q10H IV Last administered on 05/25/17 04:27; Start 05/24/17 at 18:25; Stop 05/25/17 at 08:57; Status DC Acetaminophen/ Hydrocodone Bitart (Lortab 5/325) 1 tab PRN Q4HRS PRN PO PAIN Last administered on 05/26/17 00:38; Start 05/24/17 at 23:15 Potassium Chloride (Klor-Con) 40 meq DAILY10 PO Last administered on 05/25/17 11:10; Start 05/25/17 at 10:00 Enoxaparin Sodium (Lovenox) 40 mg Q24H SQ ; Start 05/26/17 at 09:00 Albuterol/ Ipratropium (Duoneb) 3 ml RTQID NEB Last administered on 05/26/17 04:17; Start 05/25/17 at 20:15 Diphenhydramine HCl (Benadryl) 25 mg PRN QHS PRN PO INSOMNIA Last administered on 05/25/17 22:19; Start 05/25/17 at 22:00 Active Scripts Active Reported Midodrine Hcl 5 Mg Tablet 5 Mg PO Q8HRS Remeron (Mirtazapine) 15 Mg Tablet 7.5 Mg PO DAILY Benadryl (Diphenhydramine Hcl) 25 Mg Capsule 25 Mg PO PRN Q4HRS PRN Vitamin D3 (Cholecalciferol (Vitamin D3)) 1,000 Unit Tablet 1,000 Unit PO DAILY Vitamin B-12 (Cyanocobalamin (Vitamin B-12)) 1,000 Mcg Tablet 500 Mcg PO DAILY Levothyroxine Sodium 175 Mcg Tablet 175 Mcg PO DAILY06 Maalox Maximum Strength Susp (Mag Hydrox/Al Hydrox/Simeth) 355 Ml Oral.susp 355 Ml TOP PRN PRN Digoxin 250 Mcg Tablet 250 Mcg PO DAILY Zofran Odt (Ondansetron) 4 Mg Tab.rapdis 4 Mg PO PRN Q6HRS PRN [place] 5-325 Tablet (Hydrocodone Bit/Acetaminophen) 1 Each Tablet 1 Tab PO PRN Q4HRS PRN Multivitamins (Multivitamin) 1 Each Tablet 1 Tab PO Protonix (Pantoprazole Sodium) 20 Mg Tablet.dr 20 Mg PO DAILY Vitals/I & O Vital Sign - Last 24 Hours 05/25/17 05/25/17 05/25/17 05/25/17 07:30 07:55 08:00 08:30 Pulse 80 80 80 Resp 24 24 B/P (MAP) 109/41 (63) 99/49 (66) Pulse Ox 99 99 O2 Delivery Nasal Cannula Room Air Nasal Cannula O2 Flow Rate 2.0 2.0 05/25/17 05/25/17 05/25/1711/17 09:30 10:30 11:00 11:27 Pulse 86 84 Resp 24 24 B/P (MAP) 122/60 (80) 107/43 (64) Pulse Ox 99 98 98 O2 Delivery Nasal Cannula Nasal Cannula Room Air O2 Flow Rate 2.0 2.0 2.0 05/25/17 05/25/17 05/25/17 05/25/17 11:29 11:30 12:04 12:30 Temp 98.8 Pulse 86 90 74 Resp 24 24 24 B/P (MAP) 117/54 (75) 112/46 (68) 125/49 (74) Pulse Ox 98 98 99 O2 Delivery Nasal Cannula Nasal Cannula Nasal Cannula O2 Flow Rate 2.0 2.0 2.0 05/25/17 05/25/17 05/25/17 05/25/17 15:30 15:47 16:00 16:13 Temp 98.5 Pulse 82 88 Resp 20 B/P (MAP) 107/49 (68) Pulse Ox 99 O2 Delivery Nasal Cannula Room Air O2 Flow Rate 2.0 05/25/17 05/25/17 05/25/17 05/25/17 17:30 18:29 19:29 19:30 Temp 99.0 Pulse 76 83 Resp 18 24 24 B/P (MAP) 112/51 (71) 103/43 (63) 116/60 (78) Pulse Ox 99 99 100 O2 Delivery Nasal Cannula Nasal Cannula Nasal Cannula Room Air O2 Flow Rate 2.0 2.0 2.0 05/25/17 05/25/17 05/25/17 05/25/17 20:29 20:34 21:29 21:35 Pulse 93 92 93 Resp 22 22 20 B/P (MAP) 111/52 (71) 116/47 (70) 111/52 Pulse Ox 100 100 99 O2 Delivery Room Air Nasal Cannula Room Air O2 Flow Rate 2.0 2.0 2.0 05/25/17 05/25/17 05/26/17 05/26/17 22:29 23:29 00:38 00:43 Pulse 83 74 Resp 22 24 22 B/P (MAP) 112/51 (71) 110/51 (70) Pulse Ox 100 99 99 O2 Delivery Room Air Room Air Nasal Cannula Room Air O2 Flow Rate 2.0 2.0 2.0 05/26/17 05/26/17 05/26/17 05/26/17 00:44 01:29 02:04 02:29 Pulse 73 83 84 Resp 24 22 22 20 B/P (MAP) 114/46 (68) 95/50 (65) 115/56 (75) Pulse Ox 95 100 100 98 O2 Delivery Nasal Cannula Nasal Cannula Nasal Cannula Nasal Cannula O2 Flow Rate 2.0 2.0 2.0 2.0 05/26/17 05/26/17 05/26/17 05/26/17 03:29 04:29 05:23 05:44 Temp 98.6 Pulse 72 81 81 78 Resp 22 20 20 B/P (MAP) 95/48 (64) 107/49 (68) 107/49 100/52 (68) Pulse Ox 100 100 100 O2 Delivery Nasal Cannula Nasal Cannula Nasal Cannula O2 Flow Rate 2.0 2.0 1.0 Intake and Output 05/25/17 05/25/17 05/26/17 15:00 23:00 07:00 Intake Total 1120 ml 550 ml Output Total 600 ml Balance 520 ml 550 ml FER STAPLETON MD May 26, 2017 07:34
[2017-05-26] MEDS: PANTOPRAZOLE 40 MG TABLET. PO SCH (07:57)
[2017-05-26] MEDS ORDERED: IOHEXOL 300 MG/ML 75 ML VIAL. IV ONE (08:00)
[2017-05-26] MEDS ORDERED: CONTRAST GIVEN MC PRN (08:00)
[2017-05-26] MEDS: CHOLECALCIFEROL (VITAMIN D3) 1,000 UNIT TABLET PO SCH (09:46)
[2017-05-26] MEDS: DIGOXIN 250 MCG TABLET PO SCH (09:49)
[2017-05-26] MEDS: ASPIRIN ENTERIC COATED 81 MG TABLET.DR. PO SCH (09:49)
[2017-05-26] MEDS: CYANOCOBALAMIN (VITAMIN B-12) 1,000 MCG TABLET. PO SCH (09:49)
[2017-05-26] MEDS: ENOXAPARIN 40 MG/0.4 ML DISP.SYRIN. SQ SCH (09:50)
[2017-05-26] MEDS: POTASSIUM CHLORIDE 20 MEQ TABLET.ER. PO SCH (09:58)
--- NOTE | 2017-05-26 17:56 | RAD ---
EXAM: CT angiography of the chest with intravenous contrast. HISTORY: Shortness of breath. TECHNIQUE: Computed tomographic images of the chest were obtained following the administration of 75 cc Omnipaque 300 intravenous contrast according to angiography protocol. Multiplanar reformatting was performed and 3-dimensional maximum intensity projection images were obtained. *One or more of the following individualized dose reduction techniques were utilized for this examination: 1. Automated exposure control. 2. Adjustment of the mA and/or kV according to patient size. 3. Use of iterative reconstruction technique. COMPARISON: None. FINDINGS: There is no evidence of pulmonary embolism. There is mild cardiomegaly. There is a small pericardial effusion. There is coronary artery and aortic atherosclerosis. No pathologically enlarged mediastinal or hilar lymph node is seen. There is small bilateral pleural effusions. There is no pneumothorax. There is centrilobular emphysema. There is mild right lower lobe bronchial wall thickening. There is bilateral basilar compressive atelectasis and pleural parenchymal scarring. There are clustered nodular opacities within the right middle lobe, the largest of which measures 7 mm. There is suspected linear scarring or atelectasis within the left mid to upper thorax. There are degenerative changes throughout the thoracic spine and there is thoracic kyphosis. No suspicious osseous lesion is seen. The upper abdomen is unremarkable. IMPRESSION: 1. No evidence of pulmonary embolism. 2. Cardiomegaly and small pericardial effusion. 3. Small bilateral pleural effusions with bilateral lower lobe compressive atelectasis or pleural parenchymal scarring. 4. Clustered nodular opacities within the right middle lobe, the largest of which measures 7 mm. These may be postinfectious or postinflammatory. Short-term follow-up is recommended according to Fleischner Society criteria to exclude neoplasm. 5. Centrilobular emphysema. Fleischner Society recommendations (Radiology 2005; 237; 395-400): In a low risk patient: <4mm - No follow up required. >4-6mm- 12 month follow up, if unchanged, no further follow up. >6-8mm- 6-12 month follow up, then at 18-24 months if no change. >8mm- 3, 9, 24 month follow up or consideration of PET/CT. In a high risk patient: <4mm - 12 month follow up, if unchanged then no further follow up. >4-6mm- 6-12 month follow up, then at 18-24 months if no change. >6-8mm- 3-6 month follow up, then at 9-12 months and 24 months if no change >8mm- Same as for low risk patient. Electronically signed by: Monalisa Avila MD (05/26/2017 5:53 PM) [facility]
[2017-05-26] MEDS ORDERED: MORPHINE SULFATE 5 MG/ML SYRINGE. SQ PRN (18:00)
[2017-05-26] MEDS: diphenhydrAMINE HCL 25 MG CAPSULE PO PRN (19:57)
[2017-05-26] MEDS: MIRTAZAPINE 7.5 MG TABLET. PO SCH (19:57)
[2017-05-27] VITALS (13 sets, daily range): BP systolic 80–123; BP diastolic 41–58
[2017-05-27] MEDS: HYDROcodone/APAP 5/325MG 1 TAB TABLET PO PRN ×2 (03:11→15:04)
[2017-05-27] MEDS: LEVOTHYROXINE 175 MCG TABLET PO SCH (06:29)
[2017-05-27] MEDS: MIDODRINE 5 MG TABLET PO SCH ×2 (06:29→12:41)
[2017-05-27] MEDS: IPRATRPIUM/ALBUTEROL 0.5/2.5MG 3 ML NEBU. NEB SCH ×2 (06:31→10:49)
[2017-05-27] MEDS: PANTOPRAZOLE 40 MG TABLET. PO SCH (07:36)
[2017-05-27] MEDS: ASPIRIN ENTERIC COATED 81 MG TABLET.DR. PO SCH (07:36)
[2017-05-27 08:31] LABS: BASO # 0.1 x10^3/uL (0.0-0.2); BASO % 1 % (0-3); EOS # 0.4 x10^3/uL (0.0-0.7); EOS % 5 % (0-3); HEMATOCRIT 30.9 % (36.0-47.0); HEMOGLOBIN 10.2 g/dL (12.0-15.5); LYMPH # 1.3 x10^3/uL (1.0-4.8); LYMPH % 17 % (24-48); MEAN CORPUSCULAR HEMOGLOBIN 32 pg (25-35); MEAN CORPUSCULAR HGB CONC 33 g/dL (31-37); MEAN CORPUSCULAR VOLUME 97 fL (79-100); MONO # 0.8 x10^3/uL (0.0-1.1); MONO % 11 % (0-9); NEUT # 5.1 x10^3uL (1.8-7.7); NEUT % 66 % (31-73); PLATELET COUNT 327 x10^3/uL (140-400); RED BLOOD COUNT 3.17 x10^6/uL (3.50-5.40); RED CELL DISTRIBUTION WIDTH 15.7 % (11.5-14.5); WHITE BLOOD COUNT 7.8 x10^3/uL (4.0-11.0)
[2017-05-27 08:39] LABS: CREATININE 0.8 mg/dL (0.6-1.0); GFR 69.6
[2017-05-27] MEDS: CYANOCOBALAMIN (VITAMIN B-12) 1,000 MCG TABLET. PO SCH (08:40)
[2017-05-27] MEDS: DIGOXIN 250 MCG TABLET PO SCH (08:45)
[2017-05-27] MEDS: CHOLECALCIFEROL (VITAMIN D3) 1,000 UNIT TABLET PO SCH (08:45)
[2017-05-27] MEDS: ENOXAPARIN 40 MG/0.4 ML DISP.SYRIN. SQ SCH (08:46)
[2017-05-27] MEDS ORDERED: CEPHALEXIN 250 MG CAPSULE PO SCH (09:00)
[2017-05-27] MEDS: POTASSIUM CHLORIDE 20 MEQ TABLET.ER. PO SCH (10:02)
[2017-05-27] MEDS ORDERED: CEPH-281 PO (13:49)
[2017-05-27] MEDS ORDERED: IPRA3AMP NEB (13:49)
[2017-05-27] MEDS ORDERED: ASPI-612 PO (13:49)
--- NOTE | 2017-05-27 13:55 | DISCH ---
DISCHARGE INSTRUCTIONS-DC Condition on Discharge Condition on Discharge: Stable Problems: Activity after Discharge Activity Instructions for Disc: Activity as tolerated Diet after Discharge Diet after Discharge: Cardiac Checks after Discharge Checks after discharge: Check blood press - daily, Weigh Yourself Daily Additional Comment: Recommend pt have repeat CT scan chest in 6 months Community/Resources/Services Services at Discharge: Physical Therapy, Occupational Therapy, Oxygen Therapy Contacting the DR. after DC Call your doctor for: If your condition worsens Follow-Up Follow up with: PCP upon arrival at rehab Treatment/Equipment after DC Discharge Respiratory Equipmen: Oxygen FER STAPLETON MD May 27, 2017 13:55
--- NOTE | 2017-05-27 14:05 | PDOC3 ---
Discharge Summary Discharge Summary Date of Admission Date of Admission: May 24, 2017 at 02:45 Admitting Diagnosis COPD exacerbation CHF (diastolic) UTI Acute respiratory failure Generalized debility Mod-severe PEM Date of Discharge: May 27, 2017 Discharge Diagnosis COPD exacerbation CHF (diastolic) UTI Acute respiratory failure Generalized debility Mod-severe PEM Laboratory Findings Laboratory Tests Test 05/24/17 01:30 05/24/17 03:45 05/24/17 05:30 05/24/17 06:35 White Blood Count 15.3 x10^3/uL (4.0-11.0) Red Blood Count 3.85 x10^6/uL (3.50-5.40) Hemoglobin 12.2 g/dL (12.0-15.5) Hematocrit 37.4 % (36.0-47.0) Mean Corpuscular Volume 97 fL (79-100) Mean Corpuscular Hemoglobin 32 pg (25-35) Mean Corpuscular Hemoglobin Concent 33 g/dL (31-37) Red Cell Distribution Width 15.8 % (11.5-14.5) Platelet Count 341 x10^3/uL (140-400) Neutrophils (%) (Auto) 66 % (31-73) Lymphocytes (%) (Auto) 17 % (24-48) Monocytes (%) (Auto) 15 % (0-9) Eosinophils (%) (Auto) 1 % (0-3) Basophils (%) (Auto) 1 % (0-3) Neutrophils # (Auto) 10.1 x10^3uL (1.8-7.7) Lymphocytes # (Auto) 2.7 x10^3/uL (1.0-4.8) Monocytes # (Auto) 2.2 x10^3/uL (0.0-1.1) Eosinophils # (Auto) 0.2 x10^3/uL (0.0-0.7) Basophils # (Auto) 0.1 x10^3/uL (0.0-0.2) Segmented Neutrophils % 64 % (35-66) Band Neutrophils % 1 % (0-9) Lymphocytes % 20 % (24-48) Monocytes % 12 % (0-10) Eosinophils % 3 % (0-5) Smudge Cells Present Toxic Granulation Slight Platelet Estimate Adequate (ADEQUATE) Sodium Level 139 mmol/L (136-145) Potassium Level 3.3 mmol/L (3.5-5.1) Chloride Level 104 mmol/L (98-107) Carbon Dioxide Level 25 mmol/L (21-32) Anion Gap 10 (6-14) Blood Urea Nitrogen 13 mg/dL (7-20) Creatinine 1.1 mg/dL (0.6-1.0) Estimated GFR (Cockcroft-Gault) 48.2 BUN/Creatinine Ratio 12 (6-20) Glucose Level 100 mg/dL (70-99) Calcium Level 9.2 mg/dL (8.5-10.1) Magnesium Level 1.7 mg/dL (1.8-2.4) Total Bilirubin 0.9 mg/dL (0.2-1.0) Aspartate Amino Transf (AST/SGOT) 16 U/L (15-37) Alanine Aminotransferase (ALT/SGPT) 9 U/L (14-59) Alkaline Phosphatase 100 U/L (46-116) Creatine Kinase 19 U/L (26-192) Creatine Kinase MB (Mass) < 0.5 ng/mL (0.0-3.6) Creatine Kinase MB Relative Index 2.6 % (0-4) Troponin I Quantitative 0.054 ng/mL (0-0.055) 0.044 ng/mL (0-0.055) LO-Wbt-A-Type Natriuretic Peptide 3051 pg/mL (0-449) Total Protein 7.5 g/dL (6.4-8.2) Albumin 2.9 g/dL (3.4-5.0) Albumin/Globulin Ratio 0.6 (1.0-1.7) Nasal Screen MRSA (PCR) Negative (Negative) Lactic Acid Level 2.9 mmol/L (0.4-2.0) D-Dimer (Nori) 1.36 mg/L (0.00-0.50) Triglycerides Level 89 mg/dL (0-150) Cholesterol Level 100 mg/dL (0-200) LDL Cholesterol, Calculated 52 mg/dL (0-100) VLDL Cholesterol, Calculated 17 mg/dL (0-40) Non-HDL Cholesterol Calculated 69 mg/dL (0-129) HDL Cholesterol 31 mg/dL (40-60) Cholesterol/HDL Ratio 3.0 Test 05/24/17 06:45 05/24/17 09:04 05/24/17 13:35 05/25/17 05:40 Urine Collection Type U cath Urine Color Straw Urine Clarity Cloudy Urine pH 5.0 Urine Specific [place] <=1.005 Urine Protein Neg (NEG-TRACE) Urine Glucose (UA) Neg mg/dL (NEG) Urine Ketones (Stick) Neg mg/dL (NEG) Urine Blood Large (NEG) Urine Nitrite Neg (NEG) Urine Bilirubin Neg (NEG) Urine Urobilinogen Dipstick 0.2 mg/dL (0.2 mg/dL) Urine Leukocyte Esterase Large (NEG) Urine RBC 6-10 /HPF (0-2) Urine WBC Tntc /HPF (0-4) Urine Squamous Epithelial Cells Few /LPF Urine Transitional Epithelial Cells Mod /LPF Urine Bacteria Many /HPF (0-FEW) Urine Hyaline Casts Occ /HPF Urine Mucus Slight /LPF Lactic Acid Level 4.2 mmol/L (0.4-2.0) Troponin I Quantitative 0.041 ng/mL (0-0.055) White Blood Count 11.9 x10^3/uL (4.0-11.0) Red Blood Count 3.04 x10^6/uL (3.50-5.40) Hemoglobin 9.8 g/dL (12.0-15.5) Hematocrit 29.6 % (36.0-47.0) Mean Corpuscular Volume 97 fL (79-100) Mean Corpuscular Hemoglobin 32 pg (25-35) Mean Corpuscular Hemoglobin Concent 33 g/dL (31-37) Red Cell Distribution Width 15.9 % (11.5-14.5) Platelet Count 251 x10^3/uL (140-400) Neutrophils (%) (Auto) 69 % (31-73) Lymphocytes (%) (Auto) 13 % (24-48) Monocytes (%) (Auto) 17 % (0-9) Eosinophils (%) (Auto) 1 % (0-3) Basophils (%) (Auto) 1 % (0-3) Neutrophils # (Auto) 8.1 x10^3uL (1.8-7.7) Lymphocytes # (Auto) 1.6 x10^3/uL (1.0-4.8) Monocytes # (Auto) 2.0 x10^3/uL (0.0-1.1) Eosinophils # (Auto) 0.1 x10^3/uL (0.0-0.7) Basophils # (Auto) 0.1 x10^3/uL (0.0-0.2) Sodium Level 141 mmol/L (136-145) Potassium Level 3.1 mmol/L (3.5-5.1) Chloride Level 111 mmol/L (98-107) Carbon Dioxide Level 24 mmol/L (21-32) Anion Gap 6 (6-14) Blood Urea Nitrogen 12 mg/dL (7-20) Creatinine 0.8 mg/dL (0.6-1.0) Estimated GFR (Cockcroft-Gault) 69.6 Glucose Level 97 mg/dL (70-99) Calcium Level 7.9 mg/dL (8.5-10.1) Magnesium Level 1.8 mg/dL (1.8-2.4) Test 05/26/17 05:40 05/27/17 08:03 White Blood Count 11.7 x10^3/uL (4.0-11.0) 7.8 x10^3/uL (4.0-11.0) Red Blood Count 3.18 x10^6/uL (3.50-5.40) 3.17 x10^6/uL (3.50-5.40) Hemoglobin 10.2 g/dL (12.0-15.5) 10.2 g/dL (12.0-15.5) Hematocrit 31.9 % (36.0-47.0) 30.9 % (36.0-47.0) Mean Corpuscular Volume 100 fL (79-100) 97 fL (79-100) Mean Corpuscular Hemoglobin 32 pg (25-35) 32 pg (25-35) Mean Corpuscular Hemoglobin Concent 32 g/dL (31-37) 33 g/dL (31-37) Red Cell Distribution Width 16.3 % (11.5-14.5) 15.7 % (11.5-14.5) Platelet Count 286 x10^3/uL (140-400) 327 x10^3/uL (140-400) Neutrophils (%) (Auto) 67 % (31-73) 66 % (31-73) Lymphocytes (%) (Auto) 19 % (24-48) 17 % (24-48) Monocytes (%) (Auto) 12 % (0-9) 11 % (0-9) Eosinophils (%) (Auto) 2 % (0-3) 5 % (0-3) Basophils (%) (Auto) 0 % (0-3) 1 % (0-3) Neutrophils # (Auto) 7.8 x10^3uL (1.8-7.7) 5.1 x10^3uL (1.8-7.7) Lymphocytes # (Auto) 2.2 x10^3/uL (1.0-4.8) 1.3 x10^3/uL (1.0-4.8) Monocytes # (Auto) 1.4 x10^3/uL (0.0-1.1) 0.8 x10^3/uL (0.0-1.1) Eosinophils # (Auto) 0.3 x10^3/uL (0.0-0.7) 0.4 x10^3/uL (0.0-0.7) Basophils # (Auto) 0.0 x10^3/uL (0.0-0.2) 0.1 x10^3/uL (0.0-0.2) Sodium Level 140 mmol/L (136-145) 138 mmol/L (136-145) Potassium Level 3.8 mmol/L (3.5-5.1) 4.0 mmol/L (3.5-5.1) Chloride Level 110 mmol/L (98-107) 106 mmol/L (98-107) Carbon Dioxide Level 25 mmol/L (21-32) 25 mmol/L (21-32) Anion Gap 5 (6-14) 7 (6-14) Blood Urea Nitrogen 10 mg/dL (7-20) 9 mg/dL (7-20) Creatinine 0.9 mg/dL (0.6-1.0) 0.8 mg/dL (0.6-1.0) Estimated GFR (Cockcroft-Gault) 60.7 69.6 Glucose Level 87 mg/dL (70-99) 76 mg/dL (70-99) Calcium Level 8.8 mg/dL (8.5-10.1) 9.0 mg/dL (8.5-10.1) Magnesium Level 2.1 mg/dL (1.8-2.4) Hospital Course Pt presented to ER from [facility] on 05/24 w/ chest pain. She was found to have leukocytosis, treated presumed UTI w/ IV Rocephin. Had low to intermediate VQ scan. F/u CT chest revealed NO PE. She did have some evidence of bronchitis, and there was a cluster of 7 mm nodules in the right lung that will need to be followed up in 6 months w/ a CT scan. She was initially anticoagulated due to an elevated d-dimer, but since her CT was negative this was discontinued at discharge. She does have a-fib, but rate is controlled, and she is not on anticoagulation due to being a fall risk. Pt will need to discuss this further w/ her PCP. She was seen by cardiology while here. ACS was ruled out w/ serial troponins and EKG> Echo had a normal EF w/ moderate diastolic dysfunction. Pt dx w/ chronic diastolic heart failure. Her IV infiltrated during the contrast for the CT on 05/26, and pt's IV was d/c'd after that, switched to Keflex to complete tx for uTI. Culture showed Staph and Klebsiella , both sens to Keflex, so pt will finish course of this. We plan to discharge back to [place] where she will need to continue rehab in the hopes of going home one day. Treatment EXAM: CT angiography of the chest with intravenous contrast. HISTORY: Shortness of breath. TECHNIQUE: Computed tomographic images of the chest were obtained following the administration of 75 cc Omnipaque 300 intravenous contrast according to angiography protocol. Multiplanar reformatting was performed and 3-dimensional maximum intensity projection images were obtained. *One or more of the following individualized dose reduction techniques were utilized for this examination: 1. Automated exposure control. 2. Adjustment of the mA and/or kV according to patient size. 3. Use of iterative reconstruction technique. COMPARISON: None. FINDINGS: There is no evidence of pulmonary embolism. There is mild cardiomegaly. There is a small pericardial effusion. There is coronary artery and aortic atherosclerosis. No pathologically enlarged mediastinal or hilar lymph node is seen. There is small bilateral pleural effusions. There is no pneumothorax. There is centrilobular emphysema. There is mild right lower lobe bronchial wall thickening. There is bilateral basilar compressive atelectasis and pleural parenchymal scarring. There are clustered nodular opacities within the right middle lobe, the largest of which measures 7 mm. There is suspected linear scarring or atelectasis within the left mid to upper thorax. There are degenerative changes throughout the thoracic spine and there is thoracic kyphosis. No suspicious osseous lesion is seen. The upper abdomen is unremarkable. IMPRESSION: 1. No evidence of pulmonary embolism. 2. Cardiomegaly and small pericardial effusion. 3. Small bilateral pleural effusions with bilateral lower lobe compressive atelectasis or pleural parenchymal scarring. 4. Clustered nodular opacities within the right middle lobe, the largest of which measures 7 mm. These may be postinfectious or postinflammatory. Short-term follow-up is recommended according to Fleischner Society criteria to exclude neoplasm. 5. Centrilobular emphysema. URINE CULTURE: URINE CULTURE Preliminary Preliminary report URINE CULT RES 1 Preliminary Klebsiella pneumoniae Greater than 100,000 colony forming units per mL URINE CULT RES 2 Preliminary Staphylococcus aureus Greater than 100,000 colony forming units per mL ANTIMICROBIAL SUSCEPTIBILITY Preliminary Comment S = Susceptible; I = Intermediate; R = Resistant P = Positive; N = Negative MICS are expressed in micrograms per mL Antibiotic RSLT#1 RSLT#2 RSLT#3 RSLT#4 Amoxicillin/Clavulanic Acid S Ampicillin R Cefepime S Ceftriaxone S Cefuroxime S Cephalothin S Ciprofloxacin S Ertapenem S Gentamicin S Imipenem S Levofloxacin S Nitrofurantoin S Piperacillin R Tetracycline S Tobramycin S Trimethoprim/Sulfa S Performed at: [address] [id number] Floor Trader: Florina Carpenter MD, Phone: [phone] EXAM: Two-dimensional and M-mode echocardiogram with Doppler and color Doppler. Other Information Quality : Average Rhythm : Atrial Fibrillation INDICATION Chest Pain elevated troponin level 2D DIMENSIONS Left Atrium(2D) 3.9 (1.6-4.0cm) IVSd 1.1 (0.7-1.1cm) Aortic Root(2D) 2.7 (2.0-3.7cm) LVDd 4.8 (3.9-5.9cm) LVOT Diameter 2.0 (1.8-2.4cm) PWd 1.0 (0.7-1.1cm) LVDs 3.4 (2.5-4.0cm) FS (%) 30.1 % SV 61.8 ml LVEF(%) 57.2 (>50%) Aortic Valve AoV Peak Bg. 194.9cm/s AoV VTI 25.1cm AO Peak GR. 15.2mmHg LVOT Peak Bg. 113.4cm/s LVOT VTI 20.91cm AO Mean GR. 7mmHg NARDA (VTI) 2.61cm2 AI P 1/2 Time 329ms Mitral Valve MV PHT 52ms MVA (PHT) 4.23cm2 Tricuspid Valve TR P. Velocity 259cm/s RAP ESTIMATE 3mmHg TR Peak Gr. 27mmHg RVSP 30mmHg LEFT VENTRICLE The left ventricle is normal size. There is normal left ventricular wall thickness. Left ventricle systolic function is normal. The Ejection Fraction is 55-60%. There is grossly normal LV segmental wall motion. Tissue Doppler imaging reveals moderate left ventricular diastolic dysfunction. RIGHT VENTRICLE The right ventricle is normal size. The right ventricular systolic function is normal. ATRIA The left atrium size is normal. The right atrium size is normal. The interatrial septum is intact with no evidence for an atrial septal defect or patent foramen ovale as noted on 2-D or Doppler imaging. AORTIC VALVE The aortic valve is moderately sclerotic. The aortic valve is trileaflet. Doppler and Color Flow revealed trace to mild aortic regurgitation. There is no significant aortic valvular stenosis. MITRAL VALVE Mitral annular calcification is moderate. There is no mitral valve stenosis. Doppler and Color Flow revealed trace mitral regurgitation. TRICUSPID VALVE The tricuspid valve is normal in structure and function. There is no tricuspid valve stenosis. PULMONIC VALVE The pulmonic valve is not well visualized. Doppler and Color Flow revealed no pulmonic valvular regurgitation. There is no pulmonic valvular stenosis. GREAT VESSELS The aortic root is normal in size. Pulmonary veins not recorded. The IVC is normal in size and collapses >50% with inspiration. PERICARDIAL EFFUSION There is no evidence of significant pericardial effusion. Critical Notification Critical Value: No <Conclusion> Left ventricle systolic function is normal. The Ejection Fraction is 55-60%. There is grossly normal LV segmental wall motion. Tissue Doppler imaging reveals moderate left ventricular diastolic dysfunction. Condition at Discharge: Stable. Home Meds Reported Medications Midodrine Hcl (MIDODRINE HCL) 5 Mg Tablet, 5 MG PO Q8HRS, TAB 05/24/17 Mirtazapine (REMERON) 15 Mg Tablet, 7.5 MG PO DAILY, TAB 05/24/17 Diphenhydramine Hcl (BENADRYL) 25 Mg Capsule, 25 MG PO PRN Q4HRS Y for ITCHING, CAP 05/24/17 Cholecalciferol (Vitamin D3) (VITAMIN D3) 1,000 Unit Tablet, 1000 UNIT PO DAILY , TAB 05/24/17 Cyanocobalamin (Vitamin B-12) (VITAMIN B-12) 1,000 Mcg Tablet, 500 MCG PO DAILY , TAB 05/24/17 Levothyroxine Sodium (LEVOTHYROXINE SODIUM) 175 Mcg Tablet, 175 MCG PO DAILY06 for THYROID SUPPLEMENT, #30 TAB 0 Refills 05/24/17 Mag Hydrox/Al Hydrox/Simeth (MAALOX MAXIMUM STRENGTH SUSP) 355 Ml Oral.susp, 355 ML TOP PRN Y for INFLAMMATION, LIQUID 05/24/17 Digoxin (DIGOXIN) 250 Mcg Tablet, 250 MCG PO DAILY, TAB 05/24/17 Ondansetron (ZOFRAN ODT) 4 Mg Tab.rapdis, 4 MG PO PRN Q6HRS Y for NAUSEA/ VOMITING, TAB 05/24/17 Hydrocodone Bit/Acetaminophen (NORCO 5-325 TABLET) 1 Each Tablet, 1 TAB PO PRN Q4HRS Y for PAIN, TAB 0 Refills 05/24/17 Multivitamin (MULTIVITAMINS) 1 Each Tablet, 1 TAB PO, TAB 05/24/17 Pantoprazole Sodium (PROTONIX) 20 Mg Tablet.dr, 20 MG PO DAILY, TAB 05/24/17 Inpatient Meds Current Medications Albuterol/ Ipratropium (Duoneb) 3 ml STK-MED ONCE .ROUTE ; Start 05/24/17 at 01: 02; Stop 05/24/17 at 01:03; Status DC Albuterol/ Ipratropium (Duoneb) 3 ml 1X ONCE NEB Last administered on t 01:09; Start 05/24/17 at 01:15; Stop 05/24/17 at 01:32; Status DC Fentanyl Citrate (Fentanyl 2ml Vial) 50 mcg PRN Q15MIN PRN IV PAIN GREATER THAN 3/10 Last administered on 05/24/17t 03:32; Start 05/24/17 at 01:30; Stop at 08:50; Status DC Ondansetron HCl (Zofran) 4 mg 1X ONCE IV Last administered on 05/24/17 01:45 ; Start 05/24/17 at 01:30; Stop 05/24/17 at 01:32; Status DC Multi-Ingredient Mouthwash/Gargle (Gi Cocktail) 20 ml 1X ONCE PO Last administered on 05/24/17 01:45; Start 05/24/17 at 01:30; Stop 05/24/17 at 01:32 ; Status DC Ondansetron HCl (Zofran) 4 mg PRN Q4HRS PRN IV NAUSEA/VOMITING; Start 05/24/17 at 02:45; Stop 05/25/17 at 02:44; Status DC Fentanyl Citrate (Fentanyl 2ml Vial) 50 mcg PRN Q2HR PRN IV PAIN; Start at 02:45; Stop 05/25/17 at 02:44; Status DC Acetaminophen (Tylenol) 650 mg PRN Q4HRS PRN PO FEVER Last administered on 05/24 22:01; Start 05/24/17 at 02:45; Stop 05/25/17 at 02:44; Status DC Albuterol/ Ipratropium (Duoneb) 3 ml RTQID NEB Last administered on 05/25/17 05:40; Start 05/24/17 at 08:00; Stop 05/25/17 at 08:00; Status DC Furosemide (Lasix) 40 mg 1X ONCE IVP Last administered on 05/24/17 03:14; Start 05/24/17 at 03:00; Stop 05/24/17 at 04:08; Status DC Nitroglycerin (Nitrostat) 0.4 mg PRN Q5MIN PRN SL CHEST PAIN Last administered on 05/24/17 04:32; Start 05/24/17 at 04:15 Morphine Sulfate (Morphine 2mg Syringe) 2 mg PRN Q10MIN PRN IV CHEST PAIN Last administered on 05/24/17 04:49; Start 05/24/17 at 04:15; Stop 05/26/17 at 17:51 ; Status DC Magnesium Sulfate 50 ml @ 25 mls/hr 1X ONCE IV Last administered on 05/24/17 05:23; Start 05/24/17 at 05:30; Stop 05/24/17 at 07:29; Status DC Potassium Chloride (KCl Oral Soln) 40 meq 1X ONCE PO Last administered on 05/24 05:40; Start 05/24/17 at 05:45; Stop 05/24/17 at 05:46; Status DC Sodium Chloride 1,000 ml @ 500 mls/hr Q2H IV Last administered on 05/24/17 08 :16; Start 05/24/17 at 06:30; Stop 05/24/17 at 11:31; Status DC Albuterol/ Ipratropium (Duoneb) 3 ml STK-MED ONCE .ROUTE Last administered on 07:00; Start 05/24/17 at 06:15; Stop 05/24/17 at 06:16; Status DC Ceftriaxone Sodium 1 gm/ Sodium Chloride 50 ml @ 100 mls/hr 1X ONCE IV Last administered on 05/24/17 07:31; Start 05/24/17 at 06:30; Stop 05/24/17 at 06:59 ; Status DC Enoxaparin Sodium (Lovenox) 50 mg Q12HR SQ Last administered on 05/24/17 14:47 ; Start 05/24/17 at 09:00; Stop 05/24/17 at 15:42; Status DC Aspirin (Aspirin Enteric Coated) 81 mg [id number] PO Last administered on 07:36; Start 05/25/17 at 08:00 Enoxaparin Sodium (Lovenox) 30 mg DAILY SQ Last administered on 05/25/17 07:55 ; Start 05/25/17 at 09:00; Stop 05/25/17 at 09:40; Status DC Ceftriaxone Sodium 1 gm/ Sodium Chloride 50 ml @ 100 mls/hr Q24H IV Last administered on 05/26/17 05:22; Start 05/25/17 at 06:00; Stop 05/27/17 at 08:16 ; Status DC Vitamin D (Vitamin D3) 1,000 unit DAILY PO Last administered on 05/27/17 08:45 ; Start 05/25/17 at 09:00 Cyanocobalamin (Vitamin B-12) 500 mcg DAILY PO Last administered on 05/27/17 08:40; Start 05/25/17 at 09:00 Digoxin (Lanoxin) 250 mcg DAILY PO Last administered on 05/27/17 08:45; Start 05/25/17 at 09:00 Levothyroxine Sodium (Synthroid) 175 mcg DAILY06 PO Last administered on 06:29; Start 05/25/17 at 06:00 Midodrine (Proamatine) 5 mg Q8HRS PO Last administered on 05/26/17 13:41; Start 05/24/17 at 22:00; Stop 05/26/17 at 14:02; Status DC Mirtazapine (Remeron) 7.5 mg HS PO Last administered on 05/26/17 19:57; Start 05/24/17 at 22:25 Ondansetron HCl (Zofran Odt) 4 mg PRN Q6HRS PRN PO NAUSEA/VOMITING; Start 05/24 at 15:30 Pantoprazole Sodium (Protonix) 40 mg DAILYAC PO Last administered on 05/27/17 07:36; Start 05/25/17 at 07:30 Sodium Chloride 500 ml @ 0 mls/hr 1X ONCE IV Last administered on 05/24/17 15 :57; Start 05/24/17 at 16:00; Stop 05/24/17 at 16:01; Status DC Sodium Chloride 1,000 ml @ 100 mls/hr Q10H IV Last administered on 05/25/17 04:27; Start 05/24/17 at 18:25; Stop 05/25/17 at 08:57; Status DC Acetaminophen/ Hydrocodone Bitart (Lortab 5/325) 1 tab PRN Q4HRS PRN PO PAIN Last administered on 05/27/17 03:11; Start 05/24/17 at 23:15 Potassium Chloride (Klor-Con) 40 meq DAILY10 PO Last administered on 05/27/17 10:02; Start 05/25/17 at 10:00 Enoxaparin Sodium (Lovenox) 40 mg Q24H SQ Last administered on 05/27/17 08:46 ; Start 05/26/17 at 09:00 Albuterol/ Ipratropium (Duoneb) 3 ml RTQID NEB Last administered on 05/27/17 10:49; Start 05/25/17 at 20:15 Diphenhydramine HCl (Benadryl) 25 mg PRN QHS PRN PO INSOMNIA Last administered on 05/26/17 19:57; Start 05/25/17 at 22:00 Iohexol (Omnipaque 300 Mg/ml) 75 ml 1X ONCE IV Last administered on 05/26/17 08:37; Start 05/26/17 at 08:00; Stop 05/26/17 at 08:01; Status DC Info (Do NOT chart on this entry -- for MONITORING) 1 each PRN DAILY PRN MC SEE COMMENTS; Start 05/26/17 at 08:00; Stop 05/28/17 at 07:59 Midodrine (Proamatine) 5 mg [id number] PO Last administered on 05/27/17 12:41; Start 05/26/17 at 18:00 Morphine Sulfate (Morphine 5mg Syringe) 5 mg PRN Q6HRS PRN SQ PAIN Last administered on 05/26/17 18:02; Start 05/26/17 at 18:00 Cephalexin HCl (Keflex) 500 mg BID PO Last administered on 05/27/17 08:50; Start 05/27/17 at 09:00 Active Scripts Active Reported Midodrine Hcl 5 Mg Tablet 5 Mg PO Q8HRS Remeron (Mirtazapine) 15 Mg Tablet 7.5 Mg PO DAILY Benadryl (Diphenhydramine Hcl) 25 Mg Capsule 25 Mg PO PRN Q4HRS PRN Vitamin D3 (Cholecalciferol (Vitamin D3)) 1,000 Unit Tablet 1,000 Unit PO DAILY Vitamin B-12 (Cyanocobalamin (Vitamin B-12)) 1,000 Mcg Tablet 500 Mcg PO DAILY Levothyroxine Sodium 175 Mcg Tablet 175 Mcg PO DAILY06 Maalox Maximum Strength Susp (Mag Hydrox/Al Hydrox/Simeth) 355 Ml Oral.susp 355 Ml TOP PRN PRN Digoxin 250 Mcg Tablet 250 Mcg PO DAILY Zofran Odt (Ondansetron) 4 Mg Tab.rapdis 4 Mg PO PRN Q6HRS PRN [place] 5-325 Tablet (Hydrocodone Bit/Acetaminophen) 1 Each Tablet 1 Tab PO PRN Q4HRS PRN Multivitamins (Multivitamin) 1 Each Tablet 1 Tab PO Protonix (Pantoprazole Sodium) 20 Mg Tablet.dr 20 Mg PO DAILY Activity: as tolerated Diet: Cardiac Consulting Physician: MONSTER BARRETT MD Consulting Speciality: Cardiac Follow-up Plan F/u with PCP once d/c'd from rehab. FER STAPLETON MD May 27, 2017 14:05
== END 2017-05-27 15:10 | DRG 871 ==
LOC: ER 00:46 → ICU 02:45
PROVIDERS: ADMIT Family Medicine; ATTEND Family Medicine
DX: A41.9 Sepsis, unspecified organism (principal); J96.01 Acute respiratory failure with hypoxia; E43 Unspecified severe protein-calorie malnutrition; I50.32 Chronic diastolic (congestive) heart failure; J44.1 Chronic obstructive pulmonary disease with (acute) exacerbation; N39.0 Urinary tract infection, site not specified; E03.9 Hypothyroidism, unspecified; E83.42 Hypomagnesemia; E87.6 Hypokalemia; F32.9 Major depressive disorder, single episode, unspecified; I95.1 Orthostatic hypotension; M19.90 Unspecified osteoarthritis, unspecified site; F03.90 Unspecified dementia, unspecified severity, without behavioral disturbance, psychotic disturbance, mood disturbance, and anxiety; I11.0 Hypertensive heart disease with heart failure; Z66 Do not resuscitate; I48.0 Paroxysmal atrial fibrillation; K21.9 Gastro-esophageal reflux disease without esophagitis; Z82.0 Family history of epilepsy and other diseases of the nervous system; Z82.49 Family history of ischemic heart disease and other diseases of the circulatory system; Z86.14 Personal history of Methicillin resistant Staphylococcus aureus infection; Z91.81 History of falling; Z87.891 Personal history of nicotine dependence; Z93.3 Colostomy status; Z68.21 Body mass index [BMI] 21.0-21.9, adult
CPT/HCPCS: 36415; 71010; 71275; 78582; 80048; 80053; 80061; 81001; 82553; 83605; 83735; 83880; 84484; 85007; 85025; 85027; 85379; 87040; 87086; 87186; 87641; 93005; 93306; 94640; 96374; A9540; A9558; J0696; J1650; J1940; J2270; J2405; J3010; J3475; J7040; J7620; Q0163; Q9967; 99285-25; J7030